=== PATIENT | female | born 1945 | race Caucasian/White ===

== ENCOUNTER 2016-12-07 07:04 | Emergency (ER) | payer MEDICARE ==
[~2016-12-07] VITALS: Ht 154.9 cm; Wt 53.5 kg
[~2016-12-07 07:04] MED LIST: CALMAG THINS T1 EACH PO; OMEGA-31000 MG PO; VITAMIN D32000 UNIT PO
[2016-12-07] MEDS ORDERED: ULTRAM50 MG PO (07:50)
== END 2016-12-07 08:03 | disposition home or self-care (01) ==
LOC: ED 07:04
DX: S63.502A Unspecified sprain of left wrist, initial encounter (principal); Z90.49 Acquired absence of other specified parts of digestive tract; Z90.710 Acquired absence of both cervix and uterus; Z88.0 Allergy status to penicillin; Z88.2 Allergy status to sulfonamides; Z88.6 Allergy status to analgesic agent; Z79.899 Other long term (current) drug therapy; W19.XXXA Unspecified fall, initial encounter
CPT/HCPCS: 73110; 99283